=== PATIENT | male | born 1955 | race Caucasian/White ===

== ENCOUNTER 2022-09-02 14:00 | Emergency (ER) | payer MEDICARE ==
[2022-09-02 14:46] LABS: BASOPHILS ABSOLUTE AUTO 0.03 K/uL (0.02-0.10); BASOPHILS PERCENT AUTO 0.4 % (0.0-0.5); EOSINOPHILS ABSOLUTE AUTO 0.23 K/uL (0.04-0.40); HEMATOCRIT 41.2 % (40.0-54.0); HEMOGLOBIN 14.5 g/dL (13.0-18.0); MEAN CORPUSCULAR HGB CONC 35.2 g/dL (31.0-35.0); MEAN CORPUSCULAR VOLUME 94 fL (76-96); MEAN PLATELET VOLUME 11.9 fL (6.0-10.0); MONOCYTES ABSOLUTE AUTO 0.87 K/uL (0.20-0.80); MONOCYTES PERCENT AUTO 11.3 % (3.0-10.0); NEUTROPHILS ABSOLUTE AUTO 4.89 K/uL (2.00-7.50); NEUTROPHILS PERCENT AUTO 63.3 % (45.0-70.0); PLATELET COUNT,PLT 152 K/uL (150-400); RED BLOOD CELL COUNT 4.39 M/uL (4.50-6.50); RED CELL DISTRIBUTION WIDTH 12.6 % (11.0-16.0); WHITE BLOOD CELL COUNT,WBC 7.7 K/uL (4.0-11.0)
[2022-09-02 14:55] LABS: A/G RATIO 1.2 (0.8-2.0); BILIRUBIN TOTAL 0.5 mg/dL (0.0-1.0); CALCIUM 9.3 mg/dL (8.5-10.1); CARBON DIOXIDE,CO2 30.5 mmol/L (21.0-32.0); CREATININE 1.07 mg/dL (0.70-1.30); EST CRCL DRUG DOSING (CG) 66.07 mL/min; POTASSIUM,K 4.5 mmol/L (3.5-5.1); PROTEIN TOTAL,TP 7.3 g/dL (6.4-8.2)
[2022-09-02 15:00] LABS: MAGNESIUM 1.9 mg/dL (1.8-2.4); TROPONIN I HIGH SENSITIVITY 10.3 pg/ml (<=60.4)
[2022-09-02 15:03] LABS: PROTHROMBIN TIME 10.4 sec (9.0-11.5)
[2022-09-02] MEDS ORDERED: Aspirin 81 MG Tab.Chew PO ONE (18:03)
[2022-09-02] MEDS ORDERED: Sodium Chloride 0.9% 10 ML Syringe FLUSH PRN ×2 (18:15→20:32)
[2022-09-02] MEDS ORDERED: Nitroglycerin 0.4 MG Tab.SL ONE ×2 (19:00→19:09)
== END 2022-09-02 19:17 | disposition home or self-care (01) ==
LOC: LB.ED 14:00
DX: I25.118 Atherosclerotic heart disease of native coronary artery with other forms of angina pectoris (principal); Z87.891 Personal history of nicotine dependence; Z88.8 Allergy status to other drugs, medicaments and biological substances
CPT/HCPCS: 36415; 71045; 71250; 80053; 83735; 84484; 85025; 85610; 85730; 93005; 99285; A9270

== ENCOUNTER 2023-12-13 06:58 | Emergency (ER) | payer MEDICARE ==
[2023-12-13] MEDS: Aspirin 81 MG Tab.Chew PO ONE (07:16)
[2023-12-13] MEDS: Nitroglycerin 0.4 MG Tab.SL SL ONE ×3 (07:17→08:15)
[2023-12-13] MEDS: Sodium Chloride 0.9% 10 ML Syringe FLUSH PRN (07:27)
[2023-12-13 08:17] LABS: BASOPHILS ABSOLUTE AUTO 0.03 K/uL (0.02-0.10); BASOPHILS PERCENT AUTO 0.5 % (0.0-0.5); EOSINOPHILS ABSOLUTE AUTO 0.55 K/uL (0.04-0.40); EOSINOPHILS PERCENT AUTO 8.4 % (1.0-5.0); HEMATOCRIT 41.1 % (40.0-54.0); HEMOGLOBIN 14.1 g/dL (13.0-18.0); LYMPHOCYTES ABSOLUTE AUTO 1.76 K/uL (1.50-4.00); MEAN CORPUSCULAR HEMOGLOBIN 31.6 pg (27.0-32.0); MEAN CORPUSCULAR HGB CONC 34.3 g/dL (31.0-35.0); MEAN CORPUSCULAR VOLUME 92 fL (76-96); MEAN PLATELET VOLUME 12.4 fL (6.0-10.0); MONOCYTES ABSOLUTE AUTO 1.04 K/uL (0.20-0.80); NEUTROPHILS ABSOLUTE AUTO 3.13 K/uL (2.00-7.50); NEUTROPHILS PERCENT AUTO 48.1 % (45.0-70.0); PLATELET COUNT,PLT 120 K/uL (150-400); RED BLOOD CELL COUNT 4.46 M/uL (4.50-6.50); RED CELL DISTRIBUTION WIDTH 14.3 % (11.0-16.0); WHITE BLOOD CELL COUNT,WBC 6.5 K/uL (4.0-11.0)
[2023-12-13 08:40] LABS: ALBUMIN 3.5 g/dL (3.4-5.0); ANION GAP 11.4 mmol/L (5.0-15.0); BILIRUBIN TOTAL 0.6 mg/dL (0.0-1.0); BUN/CREATININE RATIO 14.9 (6-25); CARBON DIOXIDE,CO2 28.4 mmol/L (21.0-32.0); CREATININE 0.94 mg/dL (0.70-1.30); EST CRCL DRUG DOSING (CG) 75.5 mL/min; POTASSIUM,K 4.8 mmol/L (3.5-5.1); PROTEIN TOTAL,TP 6.9 g/dL (6.4-8.2); TROPONIN I HIGH SENSITIVITY 6.6 pg/ml (<=60.4)
[2023-12-13] MEDS: Sodium Chloride 0.9% 1,000 ML IV SCH (11:47)
[2023-12-13] MEDS: Morphine 4 MG/ML VIAL IVPUSH ONE (14:00)
== END 2023-12-13 14:15 | disposition home or self-care (01) ==
LOC: LB.ED 06:58
DX: R07.89 Other chest pain (principal); I10 Essential (primary) hypertension; K21.9 Gastro-esophageal reflux disease without esophagitis; E78.00 Pure hypercholesterolemia, unspecified; E03.9 Hypothyroidism, unspecified; Z88.8 Allergy status to other drugs, medicaments and biological substances; Z79.890 Hormone replacement therapy; Z79.899 Other long term (current) drug therapy
CPT/HCPCS: 36415; 70450; 71045; 80053; 84484; 85025; 93005; 96360; 99285-25; A9270-GY; J3490; J7030